=== PATIENT | female | born 1970 | race Caucasian/White ===

== ENCOUNTER 2016-05-03 15:48 | Emergency (ER) | payer MEDICARE, MEDICAID ==
[2016-05-03 17:30] VITALS: BP 110/70
--- NOTE | 2016-05-05 11:43 | ER ---
DATE SEEN: 05/03/2016 HISTORY OF PRESENT ILLNESS: Gogo presents with a multiplicity of complaints. Most of them reflected viral involvement. Left earache 2 days' duration, runny nose, right eye swelling, left submandibular node swelling, history of twisting her back when she turned one day, constant recurrent and intermittent supraumbilical discomfort unchanged (which is baseline), experienced "nausea when I want to eat..." and decreased appetite. "Food does not taste like it should." Her weight varies between 145 and 160 pounds and her right eye feels like it has a slight foreign body in it when she closes it. The patient has been taking Zofran as needed. PAST MEDICAL HISTORY: Significant for previous surgery, gastric bypass, hiatus hernia repair, appendectomy, panniculectomy, cholecystectomy, TAHBSO, mandibular dental-entire teeth extraction. MEDICAL PROBLEMS: History of COPD, GERD, chronic low back pain, lumbar surgery, bipolar, depression and anxiety, hypothyroidism, drug-seeking behavior, seasonal allergic rhinitis, sleep difficulty, chronic low back pain, and lumbar fusion surgery. ALLERGIES: Adhesive tape, ceftriaxone, sodium, Keflex, meperidine, penicillin, vancomycin. MEDICATIONS: See chart. Most of them asthma medicine, GERD medicine, and pain medicines, plus levothyroxine. PHYSICAL EXAMINATION: GENERAL: The patient has multiple complaints. She has very angular features, absent teeth, edentulous. HEENT: PERRLA intact. Pharynx is without abnormality. Mild scleral injection. No capillary injection. No right eye discharge. EOMs normal. Eyegrounds normal. Pharynx is negative except for without teeth. NECK: Supple. No bruits in the neck. No thyromegaly. LUNGS: Clear to auscultation. HEART: S1, S2. No murmur. ABDOMEN: Soft. No guarding. No abdominal discomfort. LOWER EXTREMITIES: Without edema. COURSE IN EMERGENCY DEPARTMENT: fluorescein stain placedafter Tetracaine instilled. No evidence for corneal abrasion or ulcer. Eversion of the upper tarsal plate and palpebral conjunctivae inferiorly. Does not reveal lesion, chalazion, or meibomian gland inflammation. ASSESSMENT: Irritation of eyes, probably secondary to viremia, associated other symptoms. The patient has chronic anxiety and other needs, see above dictated long problem list. PLAN: No medication given. The patient reassured and sent home. Use Tylenol or ibuprofen as needed for eye discomfort. Follow up with doctor in a week if not improved. /[id number] DENISE/FREYA LOEPZ
== END 2016-05-03 17:24 | disposition home or self-care (01) ==
LOC: FB.ED 15:48
DX: H57.8 Other specified disorders of eye and adnexa (principal); F41.9 Anxiety disorder, unspecified; J44.9 Chronic obstructive pulmonary disease, unspecified; K21.9 Gastro-esophageal reflux disease without esophagitis; F32.9 Major depressive disorder, single episode, unspecified; E03.9 Hypothyroidism, unspecified; Z98.84 Bariatric surgery status; Z90.49 Acquired absence of other specified parts of digestive tract; Z88.1 Allergy status to other antibiotic agents; Z88.0 Allergy status to penicillin; Z88.8 Allergy status to other drugs, medicaments and biological substances
CPT/HCPCS: 87081; 87430; 99282; 99284

== ENCOUNTER 2017-03-14 10:59 | Emergency (ER) | payer MEDICARE, MEDICAID ==
[2017-03-14] MEDS ORDERED: Meclizine 25 MG Tab PO ONE ×2 (11:00→11:27)
--- NOTE | 2017-03-14 12:42 | EDM.PDOC ---
ED HPI GENERAL MEDICAL PROBLEM - General Chief Complaint: General Stated Complaint: DIZZY FATIGUE Time Seen by Provider: 03/14/17 11:15 Source of Information: Reports: Patient, Family History Limitations: Reports: No Limitations - History of Present Illness INITIAL COMMENTS - FREE TEXT/NARRATIVE: Patient is a 46 year old woman with multiple medical problems on many medications including Klonopin, Morphine and Lyrica who for the last five days has been congested and she is feeling more tired and at times a little dizzy. No change in her pain and no fever or chills but she is worried. She has had 2 gastric bypasses and is chronically anemic and she did measure her blood sugar before coming to the ED and it was 45. She ate some cinnamon rolls and on admission to ED the blood glucose was 97. 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 Medication(s) (See medication list.) lower back Pain Score (Numeric/FACES): 8 - Related Data Allergies Allergy/AdvReac Type Severity Reaction Status Date / Time adhesive Allergy Rash Verified 03/14/17 11:07 ceftriaxone sodium Allergy Hives Verified 03/14/17 11:07 [From Rocephin] cephalexin Allergy Rash Verified 03/14/17 11:07 meperidine HCl [From Demerol] Allergy Hives Verified 03/14/17 11:07 Penicillins Allergy Rash Verified 03/14/17 11:07 vancomycin Allergy Wheezing Verified 03/14/17 11:07 Home Meds: Home Meds Albuterol [Proventil HFA] 2 puff INH ASDIRECTED PRN 03/13/14 [History] Levothyroxine 125 mcg PO DAILY 03/13/14 [History] Montelukast Sodium [Singulair] 10 mg PO DAILY 03/13/14 [History] QUEtiapine [SEROquel] 600 mg PO BEDTIME 03/13/14 [History] Zolpidem Tartrate 10 mg PO BEDTIME PRN 03/13/14 [History] Cholecalciferol (Vitamin D3) [Vitamin D3] 2,000 units PO DAILY 10/22/14 [History ] Omeprazole [Prilosec] 20 mg PO BID 03/26/15 [History] QUEtiapine [SEROquel] 200 mg PO DAILY 05/22/15 [History] Polyethylene Glycol 3350 [MiraLAX] 17 gm PO DAILY PRN 05/29/15 [History] Ondansetron [Zofran Odt] 8 mg PO Q6H PRN #10 tab.rapdis 12/22/15 [Rx] ClonazePAM [KlonoPIN] 2 mg PO DAILY 03/14/17 [History] Morphine 15 mg PO BEDTIME PRN 03/14/17 [History] Pregabalin [Lyrica] 50 mg PO BID 03/14/17 [History] Past Medical History - Past Health History Medical/Surgical History: Denies Medical/Surgical History HEENT History: Reports: Impaired Vision, Other (See Below) Other HEENT History: L eye surg Respiratory History: Reports: COPD Gastrointestinal History: Reports: Gastritis, GERD Other Gastrointestinal History: Pt states on her previous meeting with , he stated she might have GERD. 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 Endocrine/Metabolic History: Reports: Hypothyroidism, Vitamin D Deficiency Hematologic History: Reports: Blood Transfusion(s) Dermatologic History: Reports: Other (See Below) Other Dermatologic History: Has bouts of sores on her skin, has spoken to about it. - Infectious Disease History Infectious Disease History: Reports: Chicken Pox - Past Surgical History GI Surgical History: Reports: Appendectomy, Bariatric Procedure, Colonoscopy, EGD, Other (See Below) Female Surgical History: Reports: Section, Hysterectomy Neurological Surgical History: Reports: Other (See Below) Social & Family History - Family History Family Medical History: Noncontributory GI: Reports: Other (See Below) Other GI Family History: Gastric by passX2 - Tobacco Use Smoking Status *Q: Current Every Day Smoker Years of Tobacco use: 25 Packs/Tins Daily: 0.5 Used Tobacco, but Quit: Yes Month Tobacco Last Used: unknown Second Hand Smoke Exposure: Yes - Caffeine Use Caffeine Use: Reports: Energy Drinks, Soda Other Caffeine Use: sugar free - Alcohol Use Days Per Week of Alcohol Use: 0 - Recreational Drug Use Recreational Drug Use: No - Living Situation & Occupation Occupation: Disabled ED ROS GENERAL - Review of Systems Review Of Systems: See Below Constitutional: Reports: Malaise, Weakness, Fatigue HEENT: Reports: Sinus Problem (Congestion.) Respiratory: Reports: No Symptoms Cardiovascular: Reports: No Symptoms Endocrine: Reports: No Symptoms GI/Abdominal: Reports: No Symptoms : Reports: No Symptoms Musculoskeletal: Reports: No Symptoms Skin: Reports: No Symptoms Neurological: Reports: Dizziness Psychiatric: Reports: Anxiety Hematologic/Lymphatic: Reports: Anemia Immunologic: Reports: No Symptoms ED EXAM, GENERAL - Physical Exam Exam: See Below Exam Limited By: No Limitations General Appearance: Alert, WD/WN, No Apparent Distress Eye Exam: Bilateral Eye: Normal Fundi, Normal Inspection, Nystagmus, PERRL Ears: Normal External Exam, Normal Canal, Hearing Grossly Normal, Normal TMs Ear Exam: Bilateral Ear: Auricle Normal, Canal Normal, TM normal Nose: Normal Inspection, Normal Mucosa, No Blood Throat/Mouth: Normal Inspection, Normal Lips, Normal Teeth, Normal Gums, Normal Oropharynx, Normal Voice, No Airway Compromise Head: Atraumatic, Normocephalic Neck: Normal Inspection, Supple, Non-Tender, Full Range of Motion Respiratory/Chest: No Respiratory Distress, Lungs Clear, Normal Breath Sounds, No Accessory Muscle Use, Chest Non-Tender Cardiovascular: Normal Peripheral Pulses, Regular Rate, Rhythm, No Edema, No Gallop, No JVD, No Murmur, No Rub GI/Abdominal: Normal Bowel Sounds, Soft, Non-Tender, No Organomegaly, No Distention, No Abnormal Bruit, No Mass Back Exam: Normal Inspection, Full Range of Motion, NT Extremities: Normal Inspection, Normal Range of Motion, Non-Tender, Normal Capillary Refill, No Pedal Edema Neurological: Alert, Oriented, CN II-XII Intact, Normal Cognition, Normal Gait, Normal Reflexes, No Motor/Sensory Deficits Course - Vital Signs Text/Narrative:: Unremarkable ED course. She felt better and most of the dizzyness went away with 25 mg of Meclizine. Her labs were normal other than a hemoglobin of 9.6, which she said was stable for her. She will take Antivert 25 mg po tid prn dizzyness and follow up with Dr. Mccarty on 03-17-17. She will return to the ED if symptoms change or worsen before then. Last Recorded V/S: Last Vital Signs Temp 36.6 C 03/14/17 11:10 Pulse 69 03/14/17 11:10 Resp 18 03/14/17 11:10 BP 94/55 L 03/14/17 11:10 Pulse Ox 98 03/14/17 11:10 - Orders/Labs/Meds Orders: Active Orders 24 hr Category Date Time Status Accu Check [Blood Glucose Check, Bedside] [RC] ONETIME Care 03/14/17 11:44 Active Labs: Laboratory Tests 03/14/17 03/14/17 03/14/17 Range/Units 11:19 11:35 11:51 WBC 5.4 (4.5-12.0) X10-3/uL RBC 4.13 (3.23-5.20) x10(6)uL Hgb 9.6 L (11.5-15.5) g/dL Hct 30.7 (30.0-51.3) % MCV 74.3 L (80-96) fL MCH 23.2 L (27.7-33.6) pg MCHC 31.2 L (32.2-35.4) g/dL RDW 21.3 H (11.5-15.5) % Plt Count 292 (125-369) X10(3)uL MPV 8.7 (7.4-10.4) fL Neut % (Auto) 34.3 L (46-82) % Lymph % (Auto) 51.6 H (13-37) % [place] % (Auto) 9.4 (4-12) % Eos % (Auto) 3 (1.0-5.0) % Baso % (Auto) 1 (0-2) % Neut # (Auto) 1.9 (1.6-8.3) # Lymph # (Auto) 2.7 (0.6-5.0) # [place] # (Auto) 0.5 (0.0-1.3) # Eos # (Auto) 0.2 (0.0-0.8) # Baso # (Auto) 0.1 (0.0-0.2) # Sodium (135-145) mmol/L Potassium (3.5-5.3) mmol/L Chloride (100-110) mmol/L Carbon Dioxide (21-32) mmol/L BUN (7-18) mg/dL Creatinine (0.55-1.02) mg/dL Est Cr Clr Drug Dosing mL/min Estimated GFR (MDRD) (>60) BUN/Creatinine Ratio (9-20) Glucose (80-116) mg/dL POC Glucose 94 (80-116) mg/dL Calcium (8.6-10.2) mg/dL Total Bilirubin (0.1-1.3) mg/dL AST (5-25) IU/L ALT (12-36) U/L Alkaline Phosphatase (56-112) IU/L Total Protein (6.0-8.0) g/dL Albumin (3.5-5.2) g/dL Globulin g/dL Albumin/Globulin Ratio Urine Color Yellow (YELLOW) Urine Appearance Clear (CLEAR) Urine pH 6.0 (5.0-6.5) Ur Specific [place] 1.010 (1.010-1.025) Urine Protein Negative (NEGATIVE) mg/dL Urine Glucose (UA) Normal (NEGATIVE) mg/dL Urine Ketones Negative (NEGATIVE) mg/dL Urine Occult Blood Negative (NEGATIVE) Urine Nitrite Negative (NEGATIVE) Urine Bilirubin Negative (NEGATIVE) Urine Urobilinogen Normal (NEGATIVE) mg/dL Ur Leukocyte Esterase Negative (NEGATIVE) Urine RBC Not seen (0) Urine WBC 0-5 (0) Ur Squamous Epith Cells Few H (NS,R,O) Urine Bacteria Few H (NS) 03/14/17 Range/Units 11:51 WBC (4.5-12.0) X10-3/uL RBC (3.23-5.20) x10(6)uL Hgb (11.5-15.5) g/dL Hct (30.0-51.3) % MCV (80-96) fL MCH (27.7-33.6) pg MCHC (32.2-35.4) g/dL RDW (11.5-15.5) % Plt Count (125-369) X10(3)uL MPV (7.4-10.4) fL Neut % (Auto) (46-82) % Lymph % (Auto) (13-37) % [place] % (Auto) (4-12) % Eos % (Auto) (1.0-5.0) % Baso % (Auto) (0-2) % Neut # (Auto) (1.6-8.3) # Lymph # (Auto) (0.6-5.0) # [place] # (Auto) (0.0-1.3) # Eos # (Auto) (0.0-0.8) # Baso # (Auto) (0.0-0.2) # Sodium 143 (135-145) mmol/L Potassium 3.9 (3.5-5.3) mmol/L Chloride 109 (100-110) mmol/L Carbon Dioxide 26 (21-32) mmol/L BUN 12 (7-18) mg/dL Creatinine 0.6 (0.55-1.02) mg/dL Est Cr Clr Drug Dosing 110.84 mL/min Estimated GFR (MDRD) > 60 (>60) BUN/Creatinine Ratio 20.0 (9-20) Glucose 87 (80-116) mg/dL POC Glucose (80-116) mg/dL Calcium 8.2 L (8.6-10.2) mg/dL Total Bilirubin 0.2 (0.1-1.3) mg/dL AST 16 (5-25) IU/L ALT 21 (12-36) U/L Alkaline Phosphatase 98 (56-112) IU/L Total Protein 6.0 (6.0-8.0) g/dL Albumin 2.9 L (3.5-5.2) g/dL Globulin 3.1 g/dL Albumin/Globulin Ratio 0.9 Urine Color (YELLOW) Urine Appearance (CLEAR) Urine pH (5.0-6.5) Ur Specific [place] (1.010-1.025) Urine Protein (NEGATIVE) mg/dL Urine Glucose (UA) (NEGATIVE) mg/dL Urine Ketones (NEGATIVE) mg/dL Urine Occult Blood (NEGATIVE) Urine Nitrite (NEGATIVE) Urine Bilirubin (NEGATIVE) Urine Urobilinogen (NEGATIVE) mg/dL Ur Leukocyte Esterase (NEGATIVE) Urine RBC (0) Urine WBC (0) Ur Squamous Epith Cells (NS,R,O) Urine Bacteria (NS) Meds: Medications Discontinued Medications Generic Name Dose Route Start Last Admin Trade Name Clay PRN Reason Stop Dose Admin Meclizine HCl 25 mg 03/14/17 11:27 03/14/17 11:36 Antivert PO 03/14/17 11:28 25 mg ONETIME ONE Administration Departure - Departure Time of Disposition: 12:47 Disposition: Home, Self-Care 01 Condition: Good Clinical Impression: Labyrinthine dysfunction of both ears - Discharge Information Instructions: Dizziness Referrals: Garry Issa MD [Primary Care Provider] - Forms: ED Department Discharge Additional Instructions: Take Antivert every 8 hours as needed for dizziness. Follow up with Dr. Kerns as scheduled on Wednesday. Return if symptoms become worse. - My Orders Last 24 Hours: My Active Orders 03/14/17 11:44 Accu Check [Blood Glucose Check, Bedside] [RC] ONETIME - Assessment/Plan Last 24 Hours: My Active Orders 03/14/17 11:44 Accu Check [Blood Glucose Check, Bedside] [RC] ONETIME
[2017-03-14 12:44] VITALS: BP 98/56
== END 2017-03-14 12:35 | disposition home or self-care (01) ==
LOC: FB.ED 10:59
DX: H83.2X3 Labyrinthine dysfunction, bilateral (principal); K21.9 Gastro-esophageal reflux disease without esophagitis; J44.9 Chronic obstructive pulmonary disease, unspecified; F17.210 Nicotine dependence, cigarettes, uncomplicated; Z88.0 Allergy status to penicillin; Z88.8 Allergy status to other drugs, medicaments and biological substances; Z79.899 Other long term (current) drug therapy
CPT/HCPCS: 36415; 80053; 81001; 82962; 85025; 99283; A9270

== ENCOUNTER 2017-09-25 14:27 | Emergency (ER) | payer MEDICARE, MEDICAID ==
[2017-09-25] MEDS ORDERED: Sodium Chloride 0.9% 10 ML Syringe FLUSH PRN (15:25)
[2017-09-25] MEDS ORDERED: Pantoprazole 40 MG Vial IVPUSH ONE (15:26)
[2017-09-25] MEDS ORDERED: HYDROmorphone 2 MG/ML SDV IVPUSH ONE (15:27)
[2017-09-25] MEDS ORDERED: Promethazine 12.5 MG in Sodium Chloride 0.9% 50 ML IV ONE (15:28)
[2017-09-25] MEDS ORDERED: Sodium Chloride 0.9% 1,000 ML IV SCH (15:30)
--- NOTE | 2017-09-25 15:35 | EDM.PDOC ---
ED HPI GENERAL MEDICAL PROBLEM - General Chief Complaint: Abdominal Pain Stated Complaint: ABD PAIN Time Seen by Provider: 09/25/17 15:20 Source of Information: Reports: Patient History Limitations: Reports: No Limitations - History of Present Illness INITIAL COMMENTS - FREE TEXT/NARRATIVE: Presents with non-radiating LLQ abdominal pain x 2 days associated with N/V. Pain is intermittent but worsening. History of Gastric bypass 2008 (Dr. Edouard, [facility]) with revision 2014 (Dr. Duron, [facility]). Denies diarrhea or constipation, but has had hard stool. Onset Date: 09/24/17 Duration: Day(s): (2) Location: Reports: Abdomen Quality: Reports: Dull Severity: Moderate Associated Symptoms: Reports: Nausea/Vomiting - Related Data Allergies Allergy/AdvReac Type Severity Reaction Status Date / Time adhesive Allergy Rash Verified 09/25/17 16:10 ceftriaxone sodium Allergy Hives Verified 09/25/17 16:10 [From Rocephin] cephalexin Allergy Rash Verified 09/25/17 16:10 meperidine HCl [From Demerol] Allergy Hives Verified 09/25/17 16:10 Penicillins Allergy Rash Verified 09/25/17 16:10 vancomycin Allergy Wheezing Verified 09/25/17 16:10 Home Meds: Home Meds Albuterol [Proventil HFA] 2 puff INH ASDIRECTED PRN 03/13/14 [History] Levothyroxine 125 mcg PO DAILY 03/13/14 [History] Montelukast Sodium [Singulair] 10 mg PO DAILY 03/13/14 [History] QUEtiapine [SEROquel] 600 mg PO BEDTIME 03/13/14 [History] Zolpidem Tartrate 10 mg PO BEDTIME PRN 03/13/14 [History] Cholecalciferol (Vitamin D3) [Vitamin D3] 2,000 units PO DAILY 10/22/14 [History ] Omeprazole [Prilosec] 20 mg PO BID 03/26/15 [History] QUEtiapine [SEROquel] 200 mg PO DAILY 05/22/15 [History] Polyethylene Glycol 3350 [MiraLAX] 17 gm PO DAILY PRN 05/29/15 [History] Ondansetron [Zofran Odt] 8 mg PO Q6H PRN #10 tab.rapdis 12/22/15 [Rx] ClonazePAM [KlonoPIN] 2 mg PO DAILY 03/14/17 [History] Morphine 15 mg PO BEDTIME PRN 03/14/17 [History] Pregabalin [Lyrica] 50 mg PO BID 03/14/17 [History] traMADol [Ultram] 50 - 100 mg PO Q8H PRN #15 tablet 09/25/17 [Rx] Past Medical History HEENT History: Reports: Impaired Vision, Other (See Below) Other HEENT History: L eye surg Respiratory History: Reports: COPD Gastrointestinal History: Reports: Gastritis, GERD Other Gastrointestinal History: Pt states on her previous meeting with , he stated she might have GERD. Genitourinary History: Reports: Other (See Below). Denies: Renal Calculus Other Genitourinary History: diagnosed with UTI 03/25/15 Musculoskeletal History: Reports: Back Pain, Chronic, Fracture Neurological History: Reports: Migraines Psychiatric History: Reports: Addiction, Anxiety, Bipolar, Depression, Panic Attack Other Psychiatric History: hx alcohol abuse, is recovering alcoholic. Endocrine/Metabolic History: Reports: Hypothyroidism, Vitamin D Deficiency Hematologic History: Reports: Blood Transfusion(s) Dermatologic History: Reports: Other (See Below) Other Dermatologic History: Has bouts of sores on her skin, has spoken to about it. - Infectious Disease History Infectious Disease History: Reports: Chicken Pox - Past Surgical History GI Surgical History: Reports: Appendectomy, Bariatric Procedure (Gastric bypass 2008 (Dr. Edouard, [facility]) and revision 2014 (Dr. Duron, [facility])) , Colonoscopy, EGD, Other (See Below) Female Surgical History: Reports: Section, Hysterectomy Neurological Surgical History: Reports: Other (See Below) Social & Family History - Family History Family Medical History: Noncontributory GI: Reports: Other (See Below) Other GI Family History: Gastric by passX2 - Tobacco Use Smoking Status *Q: Current Every Day Smoker Tobacco Use Within Last Twelve Months: Cigarettes - Caffeine Use Caffeine Use: Reports: Energy Drinks, Soda Other Caffeine Use: sugar free - Alcohol Use Alcohol Use History: No - Recreational Drug Use Recreational Drug Use: No - Living Situation & Occupation Occupation: Disabled ED ROS GENERAL - Review of Systems Review Of Systems: ROS reveals no pertinent complaints other than HPI. ED EXAM, GI/ABD - Physical Exam Exam: See Below Exam Limited By: No Limitations General Appearance: Alert, WD/WN, No Apparent Distress Ears: Normal External Exam Nose: Normal Inspection Throat/Mouth: No Airway Compromise Head: Atraumatic, Normocephalic Neck: Supple, Full Range of Motion Respiratory/Chest: No Respiratory Distress, Lungs Clear, Normal Breath Sounds Cardiovascular: Regular Rate, Rhythm, No Murmur, No Rub GI/Abdominal Exam: Normal Bowel Sounds, No Distention, Tender (moderate LLQ) Back Exam: Full Range of Motion Extremities: Normal Range of Motion Neurological: Alert, Oriented, Normal Cognition Psychiatric: Normal Affect, Normal Mood Skin Exam: Warm, Dry, Intact, Normal Color, No Rash Course - Orders/Labs/Meds Orders: Active Orders 24 hr Category Date Time Status Abdomen Pelvis w Cont [CT] Stat Exams 09/25/17 15:55 Taken HCG QUALITATIVE,URINE [URCHEM] Stat Lab 09/25/17 15:22 Ordered UA W/MICROSCOPIC [URIN] Stat Lab 09/25/17 15:22 Ordered Diatrizoate Jackelyn/Diatrizoate Na [Gastrografin 37%] Med 09/25/17 16:30 Active 30 ml PO . DIRECTED Sodium Chloride 0.9% [Normal Saline] 1,000 ml Med 09/25/17 15:30 Active IV ASDIRECTED Sodium Chloride 0.9% [Saline Flush] Med 09/25/17 15:25 Active 10 ml FLUSH ASDIRECTED PRN Saline Lock Insert [OM.PC] Stat Oth 09/25/17 15:25 Ordered Medication Orders Diatrizoate Meglum/Diatrizoate Sod (Gastrografin 37%) 30 ml PO . DIRECTED LENA Last Admin: 09/25/17 16:40 Dose: 30 ml Sodium Chloride (Normal Saline) 1,000 mls @ 150 mls/hr IV ASDIRECTED LENA Last Admin: 09/25/17 16:57 Dose: 150 mls/hr Sodium Chloride (Saline Flush) 10 ml FLUSH ASDIRECTED PRN PRN Reason: Keep Vein Open Labs: Laboratory Tests 09/25/17 09/25/17 09/25/17 Range/Units 15:22 15:22 15:32 WBC 5.4 (4.5-12.0) X10-3/uL RBC 3.90 (3.23-5.20) x10(6)uL Hgb 10.0 L (11.5-15.5) g/dL Hct 31.7 (30.0-51.3) % MCV 81.3 (80-96) fL MCH 25.7 L (27.7-33.6) pg MCHC 31.7 L (32.2-35.4) g/dL RDW 28.6 H (11.5-15.5) % Plt Count 533 H (125-369) X10(3)uL MPV 7.6 (7.4-10.4) fL Neut % (Auto) 55.9 (46-82) % Lymph % (Auto) 30.6 (13-37) % [place] % (Auto) 11.8 (4-12) % Eos % (Auto) 1 (1.0-5.0) % Baso % (Auto) 1 (0-2) % Neut # (Auto) 3.2 (1.6-8.3) # Lymph # (Auto) 1.6 (0.6-5.0) # [place] # (Auto) 0.6 (0.0-1.3) # Eos # (Auto) 0.0 (0.0-0.8) # Baso # (Auto) 0.0 (0.0-0.2) # Sodium (135-145) mmol/L Potassium (3.5-5.3) mmol/L Chloride (100-110) mmol/L Carbon Dioxide (21-32) mmol/L BUN (7-18) mg/dL Creatinine (0.55-1.02) mg/dL Est Cr Clr Drug Dosing Estimated GFR (MDRD) (>60) BUN/Creatinine Ratio (9-20) Glucose (80-116) mg/dL Calcium (8.6-10.2) mg/dL Total Bilirubin (0.1-1.3) mg/dL AST (5-25) IU/L ALT (12-36) U/L Alkaline Phosphatase (56-112) IU/L Total Protein (6.0-8.0) g/dL Albumin (3.5-5.2) g/dL Globulin g/dL Albumin/Globulin Ratio Amylase (25-115) U/L Urine Color Yellow (YELLOW) Urine Appearance Clear (CLEAR) Urine pH 6.0 (5.0-6.5) Ur Specific [place] 1.010 (1.010-1.025) Urine Protein Negative (NEGATIVE) mg/dL Urine Glucose (UA) Normal (NEGATIVE) mg/dL Urine Ketones Negative (NEGATIVE) mg/dL Urine Occult Blood Negative (NEGATIVE) Urine Nitrite Negative (NEGATIVE) Urine Bilirubin Negative (NEGATIVE) Urine Urobilinogen Normal (NEGATIVE) mg/dL Ur Leukocyte Esterase Negative (NEGATIVE) Urine RBC Not seen (0) Urine WBC 0-5 (0) Ur Squamous Epith Cells Few H (NS,R,O) Urine Bacteria Few H (NS) Urine HCG, Qual Negative (NEGATIVE) 09/25/17 Range/Units 15:32 WBC (4.5-12.0) X10-3/uL RBC (3.23-5.20) x10(6)uL Hgb (11.5-15.5) g/dL Hct (30.0-51.3) % MCV (80-96) fL MCH (27.7-33.6) pg MCHC (32.2-35.4) g/dL RDW (11.5-15.5) % Plt Count (125-369) X10(3)uL MPV (7.4-10.4) fL Neut % (Auto) (46-82) % Lymph % (Auto) (13-37) % [place] % (Auto) (4-12) % Eos % (Auto) (1.0-5.0) % Baso % (Auto) (0-2) % Neut # (Auto) (1.6-8.3) # Lymph # (Auto) (0.6-5.0) # [place] # (Auto) (0.0-1.3) # Eos # (Auto) (0.0-0.8) # Baso # (Auto) (0.0-0.2) # Sodium 134 L (135-145) mmol/L Potassium 4.1 (3.5-5.3) mmol/L Chloride 97 L D (100-110) mmol/L Carbon Dioxide 27 (21-32) mmol/L BUN 11 (7-18) mg/dL Creatinine 0.7 (0.55-1.02) mg/dL Est Cr Clr Drug Dosing TNP Estimated GFR (MDRD) > 60 (>60) BUN/Creatinine Ratio 15.7 (9-20) Glucose 72 L (80-116) mg/dL Calcium 8.9 (8.6-10.2) mg/dL Total Bilirubin 0.5 (0.1-1.3) mg/dL AST 21 D (5-25) IU/L ALT 21 (12-36) U/L Alkaline Phosphatase 125 H (56-112) IU/L Total Protein 8.2 H (6.0-8.0) g/dL Albumin 4.0 (3.5-5.2) g/dL Globulin 4.2 g/dL Albumin/Globulin Ratio 1.0 Amylase 66 (25-115) U/L Urine Color (YELLOW) Urine Appearance (CLEAR) Urine pH (5.0-6.5) Ur Specific [place] (1.010-1.025) Urine Protein (NEGATIVE) mg/dL Urine Glucose (UA) (NEGATIVE) mg/dL Urine Ketones (NEGATIVE) mg/dL Urine Occult Blood (NEGATIVE) Urine Nitrite (NEGATIVE) Urine Bilirubin (NEGATIVE) Urine Urobilinogen (NEGATIVE) mg/dL Ur Leukocyte Esterase (NEGATIVE) Urine RBC (0) Urine WBC (0) Ur Squamous Epith Cells (NS,R,O) Urine Bacteria (NS) Urine HCG, Qual (NEGATIVE) Meds: Medications Generic Name Dose Route Start Last Admin Trade Name Freq PRN Reason Stop Dose Admin Diatrizoate Meglum/Diatrizoate Sod 30 ml 09/25/17 16:30 09/25/17 16:40 Gastrografin 37% PO 30 ml . DIRECTED LENA Administration Sodium Chloride 1,000 mls @ 150 mls/hr 09/25/17 15:30 09/25/17 16:57 Normal Saline IV 150 mls/hr ASDIRECTED LENA Administration Sodium Chloride 10 ml 09/25/17 15:25 Saline Flush FLUSH ASDIRECTED PRN Keep Vein Open Discontinued Medications Generic Name Dose Route Start Last Admin Trade Name Freq PRN Reason Stop Dose Admin Hydromorphone HCl 1 mg 09/25/17 15:27 09/25/17 16:52 Dilaudid IVPUSH 09/25/17 15:28 1 mg ONETIME ONE Administration Promethazine HCl 12.5 mg/ 50.5 mls @ 200 mls/hr 09/25/17 15:28 09/25/17 17:00 Sodium Chloride IV 09/25/17 15:43 200 mls/hr ONETIME ONE Administration Iopamidol 100 ml 09/25/17 16:22 09/25/17 16:40 Isovue-370 (76%) IV 09/25/17 16:23 100 ml . DIRECTED ONE Administration Pantoprazole Sodium 40 mg 09/25/17 15:26 09/25/17 16:58 Protonix Iv IVPUSH 09/25/17 15:27 40 mg ONETIME ONE Administration - Radiology Interpretation Free Text/Narrative:: CT Abd/Pelvis w/IV contrast: NAD - Re-Assessments/Exams Free Text/Narrative Re-Assessment/Exam: 09/25/17 17:59 Pain has improved. Departure - Departure Time of Disposition: 17:59 Disposition: Home, Self-Care 01 Condition: Good Clinical Impression: Abdominal pain Qualifiers: Abdominal location: lower abdomen, unspecified Qualified Code(s): R10.30 - Lower abdominal pain, unspecified - Discharge Information *PRESCRIPTION DRUG MONITORING PROGRAM REVIEWED*: Yes *COPY OF PRESCRIPTION DRUG MONITORING REPORT IN PATIENT AFSANEH: No Prescriptions: traMADol [Ultram] 50 - 100 mg PO Q8H PRN #15 tablet PRN Reason: Pain Instructions: Abdominal Pain, Adult, [id number] Referrals: Garry Issa MD [Primary Care Provider] - Forms: ED Department Discharge Additional Instructions: Fill prescription for Tramadol and take as directed. Follow up with your doctor in 2 days. Return to the ER if symptoms worsen. - My Orders Last 24 Hours: My Active Orders 09/25/17 15:22 HCG QUALITATIVE,URINE [URCHEM] Stat UA W/MICROSCOPIC [URIN] Stat 09/25/17 15:25 Sodium Chloride 0.9% [Saline Flush] 10 ml FLUSH ASDIRECTED PRN Saline Lock Insert [OM.PC] Stat 09/25/17 15:30 Sodium Chloride 0.9% [Normal Saline] 1,000 ml IV ASDIRECTED 09/25/17 15:55 Abdomen Pelvis w Cont [CT] Stat 09/25/17 16:30 Diatrizoate Jackelyn/Diatrizoate Na [Gastrografin 37%] 30 ml PO . DIRECTED - Assessment/Plan Last 24 Hours: My Active Orders 09/25/17 15:22 HCG QUALITATIVE,URINE [URCHEM] Stat UA W/MICROSCOPIC [URIN] Stat 09/25/17 15:25 Sodium Chloride 0.9% [Saline Flush] 10 ml FLUSH ASDIRECTED PRN Saline Lock Insert [OM.PC] Stat 09/25/17 15:30 Sodium Chloride 0.9% [Normal Saline] 1,000 ml IV ASDIRECTED 09/25/17 15:55 Abdomen Pelvis w Cont [CT] Stat 09/25/17 16:30 Diatrizoate Jackelyn/Diatrizoate Na [Gastrografin 37%] 30 ml PO . DIRECTED
[2017-09-25] MEDS ORDERED: Iopamidol 755 Mg/ML 100 ML Bottle IV ONE (16:22)
[2017-09-25] MEDS ORDERED: Diatrizoate Meglumine/Diatrizoate Sodium 37% 30 ML Bottle PO SCH (16:30)
[2017-09-25 21:43] VITALS: BP 129/87
== END 2017-09-25 18:15 | disposition home or self-care (01) ==
LOC: FB.ED 14:27
DX: R10.32 Left lower quadrant pain (principal); J44.9 Chronic obstructive pulmonary disease, unspecified; F17.210 Nicotine dependence, cigarettes, uncomplicated; Z88.8 Allergy status to other drugs, medicaments and biological substances; Z88.0 Allergy status to penicillin; Z88.1 Allergy status to other antibiotic agents; Z79.899 Other long term (current) drug therapy
CPT/HCPCS: 36415; 74177; 80053; 81001; 81025; 82150; 85025; 96361; 96365; 96375; 99284; C9113; J1170; J2550; J7030; J7050; Q9963; Q9967

== ENCOUNTER 2019-09-26 12:02 | Emergency (ER) | payer MEDICARE, MEDICAID ==
[2019-09-26] MEDS ORDERED: Acetaminophen/HYDROcodone 325-5 MG Tab PO ONE (12:03)
[2019-09-26] MEDS ORDERED: Sodium Chloride 0.9% 10 ML Syringe FLUSH PRN (12:12)
[2019-09-26] MEDS ORDERED: Ondansetron 4 MG/2 ML SDV IVPUSH ONE (12:14)
[2019-09-26] MEDS ORDERED: Sodium Chloride 0.9% 1,000 ML IV SCH (12:15)
[2019-09-26] MEDS ORDERED: traMADol 50 MG Tab PO ONE (12:20)
[2019-09-26] MEDS ORDERED: Potassium Chloride 10% 20 MEQ/15 ML Soln 15 ML UD Cup PO ONE (13:28)
[2019-09-26] MEDS ORDERED: Ketorolac 30 MG/ML SDV IVPUSH ONE (14:16)
[2019-09-26 14:28] VITALS: BP 114/74; PULSE 70
--- NOTE | 2019-09-26 16:13 | CR ---
INDICATION: Left foot injury. LEFT FOOT: Three views of the left foot were obtained with four images 09/26/19 - no comparison. Moderately large plantar calcaneal spur is noted with a small posterior calcaneal spur. There is suggestion of some irregularity at the metatarsal tarsal joints 1, 2, 3, and possibly 4, raising question of chip fracture fragments in those areas. This should be correlated clinically. Additional examination could be obtained, such as CT of the left foot to further evaluate this area. At any rate, there do appear to be some degenerative changes at those joints. Some minimal degenerative change is noted at the ankle mortise also. No other sign of possible fractures or other gross abnormality was seen in the left foot. Report was given by phone to Dr. Shoemaker at approximately 1407 hours. [facility]
--- NOTE | 2019-09-26 16:14 | EDM.PDOC ---
ED HPI GENERAL MEDICAL PROBLEM - General Chief Complaint: Lower Extremity Injury/Pain Stated Complaint: LT FOOT FX Time Seen by Provider: 09/26/19 12:05 Source of Information: Reports: Patient History Limitations: Reports: No Limitations - History of Present Illness INITIAL COMMENTS - FREE TEXT/NARRATIVE: Patient presented to the ED because of Left foot pain. She was in her kitchen, slipped and twisted her left foot. She c/o 10/10pain which is worse with ambulation and movements. Left Foot Pain Score (Numeric/FACES): 10 - Related Data Allergies Allergy/AdvReac Type Severity Reaction Status Date / Time adhesive Allergy Rash Verified 09/25/17 16:10 ceftriaxone sodium Allergy Hives Verified 09/25/17 16:10 [From Rocephin] cephalexin Allergy Rash Verified 09/25/17 16:10 meperidine HCl [From Demerol] Allergy Hives Verified 09/25/17 16:10 Penicillins Allergy Rash Verified 09/25/17 16:10 vancomycin Allergy Wheezing Verified 09/25/17 16:10 Home Meds: Home Meds Albuterol [Proventil HFA] 2 puff INH ASDIRECTED PRN 03/13/14 [History] Levothyroxine 125 mcg PO DAILY 03/13/14 [History] Montelukast Sodium [Singulair] 10 mg PO DAILY 03/13/14 [History] QUEtiapine [SEROquel] 600 mg PO BEDTIME 03/13/14 [History] Zolpidem Tartrate 10 mg PO BEDTIME PRN 03/13/14 [History] Cholecalciferol (Vitamin D3) [Vitamin D3] 2,000 units PO DAILY 10/22/14 [History] Omeprazole [Prilosec] 20 mg PO BID 03/26/15 [History] QUEtiapine [SEROquel] 200 mg PO DAILY 05/22/15 [History] Polyethylene Glycol 3350 [MiraLAX] 17 gm PO DAILY PRN 05/29/15 [History] Ondansetron [Zofran Odt] 8 mg PO Q6H PRN #10 tab.rapdis 12/22/15 [Rx] ClonazePAM [KlonoPIN] 2 mg PO DAILY 03/14/17 [History] Morphine 15 mg PO BEDTIME PRN 03/14/17 [History] Pregabalin [Lyrica] 50 mg PO BID 03/14/17 [History] DULoxetine [Cymbalta] 60 mg PO DAILY 09/25/17 [History] traMADol [Ultram] 50 - 100 mg PO Q8H PRN #15 tablet 09/25/17 [Rx] Acetaminophen/HYDROcodone [[place] 325-5 MG] 1 tab PO Q4H PRN #10 tab 09/26/19 [Rx] Potassium Chloride [Klor-Con] 40 meq PO TID #18 packet 09/27/19 [Rx] Past Medical History HEENT History: Reports: Impaired Vision, Other (See Below) Other HEENT History: L eye surg Respiratory History: Reports: COPD Gastrointestinal History: Reports: Gastritis, GERD Other Gastrointestinal History: Pt states on her previous meeting with , he stated she might have GERD. Genitourinary History: Reports: Other (See Below). Denies: Renal Calculus Other Genitourinary History: diagnosed with UTI 03/25/15 [employer] History: Reports: Musculoskeletal History: Reports: Back Pain, Chronic, Fracture Neurological History: Reports: Migraines Psychiatric History: Reports: Addiction, Anxiety, Bipolar, Depression, Panic Attack Other Psychiatric History: hx alcohol abuse, is recovering alcoholic. Endocrine/Metabolic History: Reports: Hypothyroidism, Vitamin D Deficiency Hematologic History: Reports: Blood Transfusion(s) Dermatologic History: Reports: Other (See Below) Other Dermatologic History: Has bouts of sores on her skin, has spoken to about it. - Infectious Disease History Infectious Disease History: Reports: Chicken Pox - Past Surgical History GI Surgical History: Reports: Appendectomy, Bariatric Procedure (Gastric bypass 2008 (Dr. Edouard, [facility]) and revision 2014 (Dr. Duron, [facility])), Colonoscopy, EGD, Other (See Below) Female Surgical History: Reports: Section, Hysterectomy Neurological Surgical History: Reports: Other (See Below) Social & Family History - Family History Family Medical History: Noncontributory GI: Reports: Other (See Below) Other GI Family History: Gastric by passX2 - Caffeine Use Caffeine Use: Reports: Energy Drinks, Soda Other Caffeine Use: sugar free - Living Situation & Occupation Occupation: Disabled Review of Systems - Review of Systems Review Of Systems: See Below Constitutional: Reports: No Symptoms Ears: Reports: No Symptoms Nose: Reports: No Symptoms Mouth/Throat: Reports: No Symptoms Respiratory: Reports: No Symptoms Cardiovascular: Reports: No Symptoms GI/Abdominal: Reports: No Symptoms Genitourinary: Reports: No Symptoms Musculoskeletal: Reports: Joint Pain, Joint Swelling Skin: Reports: No Symptoms ED EXAM, GENERAL - Physical Exam Exam: See Below Exam Limited By: Intoxication General Appearance: Alert, No Apparent Distress Ears: Normal External Exam, Normal Canal Nose: Normal Inspection, Normal Mucosa Throat/Mouth: Normal Inspection, Normal Lips Head: Atraumatic, Normocephalic Neck: Normal Inspection, Supple, Non-Tender, Full Range of Motion Respiratory/Chest: No Respiratory Distress, Lungs Clear, Normal Breath Sounds Cardiovascular: Normal Peripheral Pulses, Regular Rate, Rhythm, No Edema, No Gallop GI/Abdominal: Normal Bowel Sounds, Soft, Non-Tender, No Organomegaly Back Exam: Normal Inspection, Full Range of Motion Extremities: Normal Inspection, Other (tenderness and swelling-dorsum of left foot) Course - Vital Signs Text/Narrative:: Labs/Xray left foot/CT left foot was discussed with patient and verbalized full understanding Hypokalemia-KCL liquid 40 meq po x1 Consult done with Dr Otero [facility] at [place] and will see patient in AM Last Recorded V/S: Last Vital Signs Temp 37.1 C 09/26/19 12:02 Pulse 70 09/26/19 14:28 Resp 16 09/26/19 14:28 BP 114/74 09/26/19 14:28 Pulse Ox 95 09/26/19 14:28 - Orders/Labs/Meds Orders: Active Orders 24 hr Category Date Time Status EKG Documentation Completion [RC] ASDIRECTED Care 09/26/19 12:13 Active Saline Lock Insert [OM.PC] Routine Oth 09/26/19 12:12 Ordered EKG 12 Lead [EK] Routine Ther 09/26/19 12:13 Ordered Labs: Laboratory Tests 09/26/19 09/26/19 09/26/19 Range/Units 12:25 12:25 12:25 WBC 4.7 (4.5-12.0) X10-3/uL RBC 3.05 L (3.23-5.20) x10(6)uL Hgb 8.1 L (11.5-15.5) g/dL Hct 26.0 L (30.0-51.3) % MCV 85.1 (80-96) fL MCH 26.5 L (27.7-33.6) pg MCHC 31.1 L (32.2-35.4) g/dL RDW 27.4 H (11.5-15.5) % Plt Count 345 (125-369) X10(3)uL MPV 8.1 (7.4-10.4) fL Neut % (Auto) 47.5 (46-82) % Lymph % (Auto) 38.2 H (13-37) % [place] % (Auto) 12.6 H (4-12) % Eos % (Auto) 1 (1.0-5.0) % Baso % (Auto) 1 (0-2) % Neut # (Auto) 2.3 (1.6-8.3) # Lymph # (Auto) 1.8 (0.6-5.0) # [place] # (Auto) 0.6 (0.0-1.3) # Eos # (Auto) 0.0 (0.0-0.8) # Baso # (Auto) 0.0 (0.0-0.2) # Sodium 136 (135-145) mmol/L Potassium 2.1 L* D (3.5-5.3) mmol/L Chloride 93 L (100-110) mmol/L Carbon Dioxide 35 H (21-32) mmol/L BUN 20 H (7-18) mg/dL Creatinine 1.3 H (0.55-1.02) mg/dL Est Cr Clr Drug Dosing TNP Estimated GFR (MDRD) 44 L (>60) BUN/Creatinine Ratio 15.4 (9-20) Glucose 105 (80-116) mg/dL Calcium 8.9 (8.6-10.2) mg/dL Total Bilirubin 0.6 (0.1-1.3) mg/dL AST 21 (5-25) IU/L ALT 22 (12-36) U/L Alkaline Phosphatase 97 (56-112) IU/L Troponin I 7.1 (4.0-60.3) pg/mL Total Protein 7.1 (6.0-8.0) g/dL Albumin 3.3 L (3.5-5.2) g/dL Globulin 3.8 g/dL Albumin/Globulin Ratio 0.9 Urine Color (YELLOW) Urine Appearance (CLEAR) Urine pH (5.0-6.5) Ur Specific [place] (1.010-1.025) Urine Protein (NEGATIVE) mg/dL Urine Glucose (UA) (NORMAL) mg/dL Urine Ketones (NEGATIVE) mg/dL Urine Occult Blood (NEGATIVE) Urine Nitrite (NEGATIVE) Urine Bilirubin (NEGATIVE) Urine Urobilinogen (NEGATIVE) mg/dL Ur Leukocyte Esterase (NEGATIVE) Urine WBC (0-5) 09/26/19 Range/Units 13:00 WBC (4.5-12.0) X10-3/uL RBC (3.23-5.20) x10(6)uL Hgb (11.5-15.5) g/dL Hct (30.0-51.3) % MCV (80-96) fL MCH (27.7-33.6) pg MCHC (32.2-35.4) g/dL RDW (11.5-15.5) % Plt Count (125-369) X10(3)uL MPV (7.4-10.4) fL Neut % (Auto) (46-82) % Lymph % (Auto) (13-37) % [place] % (Auto) (4-12) % Eos % (Auto) (1.0-5.0) % Baso % (Auto) (0-2) % Neut # (Auto) (1.6-8.3) # Lymph # (Auto) (0.6-5.0) # [place] # (Auto) (0.0-1.3) # Eos # (Auto) (0.0-0.8) # Baso # (Auto) (0.0-0.2) # Sodium (135-145) mmol/L Potassium (3.5-5.3) mmol/L Chloride (100-110) mmol/L Carbon Dioxide (21-32) mmol/L BUN (7-18) mg/dL Creatinine (0.55-1.02) mg/dL Est Cr Clr Drug Dosing Estimated GFR (MDRD) (>60) BUN/Creatinine Ratio (9-20) Glucose (80-116) mg/dL Calcium (8.6-10.2) mg/dL Total Bilirubin (0.1-1.3) mg/dL AST (5-25) IU/L ALT (12-36) U/L Alkaline Phosphatase (56-112) IU/L Troponin I (4.0-60.3) pg/mL Total Protein (6.0-8.0) g/dL Albumin (3.5-5.2) g/dL Globulin g/dL Albumin/Globulin Ratio Urine Color Yellow (YELLOW) Urine Appearance Turbid (CLEAR) Urine pH 6.0 (5.0-6.5) Ur Specific [place] 1.010 (1.010-1.025) Urine Protein Negative (NEGATIVE) mg/dL Urine Glucose (UA) Normal (NORMAL) mg/dL Urine Ketones 15 H (NEGATIVE) mg/dL Urine Occult Blood Negative (NEGATIVE) Urine Nitrite Positive H (NEGATIVE) Urine Bilirubin Small H (NEGATIVE) Urine Urobilinogen 1 H (NEGATIVE) mg/dL Ur Leukocyte Esterase Large H (NEGATIVE) Urine WBC Packed H (0-5) Meds: Medications Discontinued Medications Generic Name Dose Route Start Last Admin Trade Name Freq PRN Reason Stop Dose Admin Sodium Chloride 1,000 mls @ 999 mls/hr 09/26/19 12:15 09/26/19 13:15 Normal Saline IV 999 mls/hr ASDIRECTED LENA Administration Ketorolac Tromethamine 30 mg 09/26/19 14:16 09/26/19 14:18 Toradol IVPUSH 09/26/19 14:17 30 mg ONETIME ONE Administration Ondansetron HCl 4 mg 09/26/19 12:14 09/26/19 13:45 Zofran IVPUSH 09/26/19 12:15 4 mg ONETIME ONE Administration Potassium Chloride 40 meq 09/26/19 13:28 09/26/19 14:00 Potassium Chloride Solution PO 09/26/19 13:29 40 meq ONETIME ONE Administration Sodium Chloride 10 ml 09/26/19 12:12 09/26/19 13:20 Saline Flush FLUSH 10 ml ASDIRECTED PRN Administration Keep Vein Open Tramadol HCl 100 mg 09/26/19 12:20 09/26/19 12:46 Ultram PO 09/26/19 12:21 100 mg ONETIME ONE Administration Departure - Departure Time of Disposition: 16:10 Disposition: Home, Self-Care 01 Condition: Good Clinical Impression: Foot fracture, left, Hypokalemia - Discharge Information Prescriptions: Potassium Chloride [Klor-Con] 40 meq PO TID #18 packet Acetaminophen/HYDROcodone [[place] 325-5 MG] 1 tab PO Q4H PRN #10 tab PRN Reason: Pain Referrals: Huseyin Noland MD [Primary Care Provider] - Forms: ED Department Discharge Additional Instructions: Please read discharge instructions on foot fracture Use your crutches at all times Klor con 20 MEQ , take 2 tablets 3 times daily for 3 days Take [place] 5/325, 1-2 tablets every 4-6 hours as needed for pain Follow up with [facility] [employer] [employer] tomorrow - My Orders Last 24 Hours: My Active Orders 09/26/19 12:12 Saline Lock Insert [OM.PC] Routine 09/26/19 12:13 EKG Documentation Completion [RC] ASDIRECTED EKG 12 Lead [EK] Routine - Assessment/Plan Last 24 Hours: My Active Orders 09/26/19 12:12 Saline Lock Insert [OM.PC] Routine 09/26/19 12:13 EKG Documentation Completion [RC] ASDIRECTED EKG 12 Lead [EK] Routine
--- NOTE | 2019-09-26 16:39 | CT ---
INDICATION: Trauma, abnormal x-ray suggesting fractures at the distal forefoot on the left. CT LOWER EXTREMITY - LEFT, WITHOUT CONTRAST: Spiral 2.5 mm axial sections were obtained through the feet without contrast with sagittal and coronal reconstructions and revealed chip fracture fragments off the proximal metaphyses of the first, second and third metatarsals. The fourth and fifth metatarsals appear to be intact. Fractures are noted at the cuboid bone and at all 3 cuneiforms. There are some distraction fracture fragments and deformity at the fracture sites. The appearance raises the question of neuropathic pathology which should be correlated clinically. Tiny chip fracture fragment is suggested off the lateral aspect of the distal metaphysis of the left tibia at the tibiotalar interface anteriorly. This could represent an old chip fracture fragment that did not unite, however - correlate clinically - is there tenderness at the left lateral malleolus along the anterior aspect. No other fracture sites were identified. IMPRESSION: 1. Chip fracture fragments and some areas of relatively more prominent fracture with comminution at cuneiforms and to a lesser extent the third cuneiform and cuboid with fractures of proximal metaphyses of the first, second and third metatarsals also noted on the left. 2. Moderately large plantar calcaneal spur is noted with small posterior calcaneal spur on the left, a small posterior spur and tiny plantar calcaneal spur is noted on the right. 3. Tiny chip fracture fragment is suggested off the lateral aspect of the distal metaphysis of the left tibia at the tibiotalar interface anteriorly. This could represent an old chip fracture fragment that did not unite, however - correlate clinically - is there tenderness at the left lateral malleolus along the anterior aspect. Report was called to Dr. Shoemaker at 1555 hours. [facility]
== END 2019-09-26 16:30 | disposition home or self-care (01) ==
LOC: FB.ED 12:02
DX: S92.212A Displaced fracture of cuboid bone of left foot, initial encounter for closed fracture (principal); S92.312A Displaced fracture of first metatarsal bone, left foot, initial encounter for closed fracture; S92.322A Displaced fracture of second metatarsal bone, left foot, initial encounter for closed fracture; S92.332A Displaced fracture of third metatarsal bone, left foot, initial encounter for closed fracture; S92.232A Displaced fracture of intermediate cuneiform of left foot, initial encounter for closed fracture; S92.222A Displaced fracture of lateral cuneiform of left foot, initial encounter for closed fracture; S92.242A Displaced fracture of medial cuneiform of left foot, initial encounter for closed fracture; E87.6 Hypokalemia; J44.9 Chronic obstructive pulmonary disease, unspecified; K21.9 Gastro-esophageal reflux disease without esophagitis; F41.9 Anxiety disorder, unspecified; F31.9 Bipolar disorder, unspecified; E03.9 Hypothyroidism, unspecified; Z88.1 Allergy status to other antibiotic agents; Z88.8 Allergy status to other drugs, medicaments and biological substances; Z88.0 Allergy status to penicillin; Z91.048 Other nonmedicinal substance allergy status; Z79.899 Other long term (current) drug therapy; X50.1XXA Overexertion from prolonged static or awkward postures, initial encounter; Y92.000 Kitchen of unspecified non-institutional (private) residence as the place of occurrence of the external cause
CPT/HCPCS: 36415; 73630; 73700; 80053; 81001; 84484; 85025; 93005; 96361; 96374; 96375; 99284; A9270; J1885; J2405; J7030

== ENCOUNTER 2019-10-23 16:45 | Emergency (ER) | payer MEDICARE, MEDICAID ==
[2019-10-23] MEDS ORDERED: Potassium Chloride 40 MEQ/20 ML SDV IV SCH (17:00)
[2019-10-23] MEDS ORDERED: Potassium Chloride 100 ML IV SCH (17:00)
--- NOTE | 2019-10-23 17:03 | EDM.PDOC ---
ED HPI GENERAL MEDICAL PROBLEM - General Stated Complaint: LOW POTASSIUM Time Seen by Provider: 10/23/19 16:55 Source of Information: Reports: Patient History Limitations: Reports: No Limitations - History of Present Illness INITIAL COMMENTS - FREE TEXT/NARRATIVE: c/o low K pt at clinic, K 2.3, Dr Issa sent pt to ED for KCl pt with L foot fx one month ago, had low K then, had not taken replacement K has h/o gastric bypass, h/o alc abuse in past no prior CV hx will check Mg as well not on diuretic says she has been a little lightheaded when standing, no sob, no n/v, no cp, no manning, no f/c/d, no other sxs - Related Data Allergies Allergy/AdvReac Type Severity Reaction Status Date / Time adhesive Allergy Rash Verified 09/25/17 16:10 ceftriaxone sodium Allergy Hives Verified 09/25/17 16:10 [From Rocephin] cephalexin Allergy Rash Verified 09/25/17 16:10 meperidine HCl [From Demerol] Allergy Hives Verified 09/25/17 16:10 Penicillins Allergy Rash Verified 09/25/17 16:10 vancomycin Allergy Wheezing Verified 09/25/17 16:10 Home Meds: Home Meds Albuterol [Proventil HFA] 2 puff INH ASDIRECTED PRN 03/13/14 [History] Levothyroxine 125 mcg PO DAILY 03/13/14 [History] Montelukast Sodium [Singulair] 10 mg PO DAILY 03/13/14 [History] QUEtiapine [SEROquel] 600 mg PO BEDTIME 03/13/14 [History] Zolpidem Tartrate 10 mg PO BEDTIME PRN 03/13/14 [History] Cholecalciferol (Vitamin D3) [Vitamin D3] 2,000 units PO DAILY 10/22/14 [History] Omeprazole [Prilosec] 20 mg PO BID 03/26/15 [History] QUEtiapine [SEROquel] 200 mg PO DAILY 05/22/15 [History] Polyethylene Glycol 3350 [MiraLAX] 17 gm PO DAILY PRN 05/29/15 [History] Ondansetron [Zofran Odt] 8 mg PO Q6H PRN #10 tab.rapdis 12/22/15 [Rx] ClonazePAM [KlonoPIN] 2 mg PO DAILY 03/14/17 [History] Morphine 15 mg PO BEDTIME PRN 03/14/17 [History] Pregabalin [Lyrica] 50 mg PO BID 03/14/17 [History] DULoxetine [Cymbalta] 60 mg PO DAILY 09/25/17 [History] traMADol [Ultram] 50 - 100 mg PO Q8H PRN #15 tablet 09/25/17 [Rx] Acetaminophen/HYDROcodone [[place] 325-5 MG] 1 tab PO Q4H PRN #10 tab 09/26/19 [Rx] Potassium Chloride [Klor-Con] 40 meq PO TID #18 packet 09/27/19 [Rx] Potassium Chloride 40 meq PO TID #18 tablet.er 10/23/19 [Rx] Past Medical History HEENT History: Reports: Impaired Vision, Other (See Below) Other HEENT History: L eye surg Respiratory History: Reports: COPD Gastrointestinal History: Reports: Gastritis, GERD Other Gastrointestinal History: Pt states on her previous meeting with , he stated she might have GERD. Genitourinary History: Reports: Other (See Below). Denies: Renal Calculus Other Genitourinary History: diagnosed with UTI 03/25/15 [employer] History: Reports: Musculoskeletal History: Reports: Back Pain, Chronic, Fracture Neurological History: Reports: Migraines Psychiatric History: Reports: Addiction, Anxiety, Bipolar, Depression, Panic Attack Other Psychiatric History: hx alcohol abuse, is recovering alcoholic. Endocrine/Metabolic History: Reports: Hypothyroidism, Vitamin D Deficiency Hematologic History: Reports: Blood Transfusion(s) Dermatologic History: Reports: Other (See Below) Other Dermatologic History: Has bouts of sores on her skin, has spoken to about it. - Infectious Disease History Infectious Disease History: Reports: Chicken Pox - Past Surgical History GI Surgical History: Reports: Appendectomy, Bariatric Procedure (Gastric bypass 2008 (Dr. Edouard, [facility]) and revision 2014 (Dr. Duron, [facility])), Colonoscopy, EGD, Other (See Below) Female Surgical History: Reports: Section, Hysterectomy Neurological Surgical History: Reports: Other (See Below) Social & Family History - Family History Family Medical History: Noncontributory GI: Reports: Other (See Below) Other GI Family History: Gastric by passX2 - Caffeine Use Caffeine Use: Reports: Energy Drinks, Soda Other Caffeine Use: sugar free - Living Situation & Occupation Occupation: Disabled ED ROS GENERAL - Review of Systems Review Of Systems: See Below Constitutional: Reports: No Symptoms HEENT: Reports: No Symptoms Respiratory: Reports: No Symptoms Cardiovascular: Reports: No Symptoms Endocrine: Reports: No Symptoms GI/Abdominal: Reports: No Symptoms : Reports: No Symptoms Musculoskeletal: Reports: No Symptoms Skin: Reports: No Symptoms Neurological: Reports: No Symptoms Psychiatric: Reports: No Symptoms Hematologic/Lymphatic: Reports: No Symptoms Immunologic: Reports: No Symptoms ED EXAM, GENERAL - Physical Exam Exam: See Below Exam Limited By: No Limitations General Appearance: Alert, WD/WN, No Apparent Distress, Other (pt orthostatic with inc HR to 128 when standing) Ears: Hearing Grossly Normal Head: Atraumatic, Normocephalic Neck: Normal Inspection, Supple, Non-Tender, Full Range of Motion. No: Lymphadenopathy (R), Lymphadenopathy (L) Respiratory/Chest: No Respiratory Distress, Lungs Clear, Normal Breath Sounds, No Accessory Muscle Use, Chest Non-Tender Cardiovascular: Regular Rate, Rhythm, No Edema, No Murmur GI/Abdominal: Soft, Non-Tender, No Distention Extremities: Normal Inspection, Normal Range of Motion, Non-Tender, No Pedal Edema Neurological: Alert, Oriented, CN II-XII Intact, Normal Cognition, No Motor/Sensory Deficits Psychiatric: Normal Affect, Normal Mood Skin Exam: Warm, Dry, Intact, Normal Color, No Rash Lymphatic: No Adenopathy Course - Vital Signs Last Recorded V/S: Last Vital Signs Temp 36.7 C 10/23/19 16:54 Pulse 98 10/23/19 16:54 Resp 18 10/23/19 16:54 BP 114/77 10/23/19 16:54 Pulse Ox 99 10/23/19 16:54 Orthostatic Blood Pressure [ 107/69 Standing] Orthostatic Blood Pressure [ 114/77 Sitting] - Orders/Labs/Meds Orders: Active Orders 24 hr Category Date Time Status EKG Documentation Completion [RC] ASDIRECTED Care 10/23/19 16:53 Active Orthostatic Vital Signs [RC] ASDIRECTED Care 10/23/19 16:57 Active NS + KCl 20mEq/L [Normal Saline with 20 mEq KCl] 1,000 Med 10/23/19 17:00 Active ml IV ASDIRECTED NS + KCl 20mEq/L [Normal Saline with 20 mEq KCl] 1,000 Med 10/23/19 17:15 Active ml IV ASDIRECTED EKG 12 Lead [EK] Routine Ther 10/23/19 16:53 Ordered Medication Orders Potassium Chloride/Sodium Chloride (Normal Saline With 20 Meq Kcl) 1,000 mls @ 500 mls/hr IV ASDIRECTED LENA Last Admin: 10/23/19 19:30 Dose: 500 mls/hr Documented by: Infusion: 10/23/19 19:30 Dose: 500 mls/hr Documented by: Admin: 10/23/19 17:30 Dose: 500 mls/hr Documented by: DORENE Potassium Chloride/Sodium Chloride (Normal Saline With 20 Meq Kcl) 1,000 mls @ 500 mls/hr IV ASDIRECTED LENA Last Admin: 10/23/19 17:30 Dose: 500 mls/hr Documented by: DORENE Labs: Laboratory Tests 10/23/19 10/23/19 10/23/19 Range/Units 17:05 17:05 17:05 Potassium (3.5-5.3) mmol/L Magnesium 1.8 (1.8-2.5) mg/dL Troponin I 7.6 (4.0-60.3) pg/mL TSH, Ultra Sensitive 0.21 L (0.36-3.74) IU/mL 10/23/19 Range/Units 20:45 Potassium 2.8 L* (3.5-5.3) mmol/L Magnesium (1.8-2.5) mg/dL Troponin I (4.0-60.3) pg/mL TSH, Ultra Sensitive (0.36-3.74) IU/mL Meds: Medications Generic Name Dose Route Start Last Admin Trade Name Freq PRN Reason Stop Dose Admin Potassium Chloride/Sodium Chloride 1,000 mls @ 500 mls/hr 10/23/19 17:00 10/23/19 19:30 Normal Saline With 20 Meq Kcl IV 500 mls/hr ASDIRECTED LENA Administration Potassium Chloride/Sodium Chloride 1,000 mls @ 500 mls/hr 10/23/19 17:15 10/23/19 17:30 Normal Saline With 20 Meq Kcl IV 500 mls/hr ASDIRECTED LENA Administration Discontinued Medications Generic Name Dose Route Start Last Admin Trade Name Clay PRN Reason Stop Dose Admin Potassium Chloride 100 mls @ 100 mls/hr 10/23/19 17:00 Kcl 10 Meq In Water 100 Ml IV 10/23/19 20:59 Q1H LENA Potassium Chloride 20 meq 10/23/19 17:00 10/23/19 20:03 Klor-Con M20 PO 10/23/19 20:01 20 meq Q3H LENA Administration - Re-Assessments/Exams Free Text/Narrative Re-Assessment/Exam: 10/23/19 21:09 cause of her hypokalemia not entirely clear, likely related to hot weather and prior gastric bypass surgery, pt still has some KCl 20 meq tabs at home from her visit to ED last month, will have her finish those, additional tabs sent to pharmacy, pt to take a total of 5 days worth Departure - Departure Time of Disposition: 21:06 Disposition: Home, Self-Care 01 Condition: Good Clinical Impression: Hypokalemia, Orthostasis, Dehydration - Discharge Information *PRESCRIPTION DRUG MONITORING PROGRAM REVIEWED*: Not Applicable *COPY OF PRESCRIPTION DRUG MONITORING REPORT IN PATIENT AFSANEH: Not Applicable Prescriptions: Potassium Chloride 40 meq PO TID #18 tablet.er Instructions: Hypokalemia, Rehydration, Adult Referrals: Garry Issa MD [Primary Care Provider] - Additional Instructions: Take potassium 20 meq 2 tabs 3 times a day for [address] Issa in 4 days before the weekend, earlier if you are feeling worse. Increase fluids. Sepsis Event Note (ED) - Evaluation Sepsis Screening Result: No Definite Risk - Focused Exam Vital Signs: Vital Signs Temp Pulse Resp BP Pulse Ox 10/23/19 16:54 36.7 C 98 18 114/77 99 - My Orders Last 24 Hours: My Active Orders 10/23/19 16:53 EKG Documentation Completion [RC] ASDIRECTED EKG 12 Lead [EK] Routine 10/23/19 16:57 Orthostatic Vital Signs [RC] ASDIRECTED 10/23/19 17:00 NS + KCl 20mEq/L [Normal Saline with 20 mEq KCl] 1,000 ml IV ASDIRECTED 10/23/19 17:15 NS + KCl 20mEq/L [Normal Saline with 20 mEq KCl] 1,000 ml IV ASDIRECTED - Assessment/Plan Last 24 Hours: My Active Orders 10/23/19 16:53 EKG Documentation Completion [RC] ASDIRECTED EKG 12 Lead [EK] Routine 10/23/19 16:57 Orthostatic Vital Signs [RC] ASDIRECTED 10/23/19 17:00 NS + KCl 20mEq/L [Normal Saline with 20 mEq KCl] 1,000 ml IV ASDIRECTED 10/23/19 17:15 NS + KCl 20mEq/L [Normal Saline with 20 mEq KCl] 1,000 ml IV ASDIRECTED
[2019-10-23] MEDS ORDERED: NS + KCl 20mEq/L 1,000 ML IV SCH (17:15)
[2019-10-23] MEDS: Potassium Chloride 20 MEQ Tab.ER PO SCH ×2 (17:15→20:03)
[2019-10-23] MEDS: NS + KCl 20mEq/L 1,000 ML IV SCH ×2 (17:30→19:30)
[2019-10-23 21:24] VITALS: BP 124/75; PULSE 79
== END 2019-10-23 21:40 | disposition home or self-care (01) ==
LOC: FB.ED 16:45
DX: E87.6 Hypokalemia (principal); E86.0 Dehydration; J44.9 Chronic obstructive pulmonary disease, unspecified; K21.9 Gastro-esophageal reflux disease without esophagitis; F41.0 Panic disorder [episodic paroxysmal anxiety]; F31.9 Bipolar disorder, unspecified; E03.9 Hypothyroidism, unspecified; Z88.8 Allergy status to other drugs, medicaments and biological substances; Z88.1 Allergy status to other antibiotic agents; Z88.0 Allergy status to penicillin; Z90.49 Acquired absence of other specified parts of digestive tract; Z79.899 Other long term (current) drug therapy
CPT/HCPCS: 36415; 83735; 84132; 84443; 84484; 93005; 96360; 96361; 99285; A9270; J3480; 93010; 99283

== ENCOUNTER 2019-11-01 10:30 | Emergency (ER) | payer MEDICARE, MEDICAID, OTHER ==
[2019-11-01] MEDS ORDERED: Succinylcholine 200 MG/10 ML MDV IV ONE (10:31)
[2019-11-01] MEDS ORDERED: Rocuronium 100 MG/10 ML MDV IV ONE (10:31)
[2019-11-01] MEDS ORDERED: Sodium Chloride 0.9% 10 ML Syringe FLUSH PRN (10:38)
--- NOTE | 2019-11-01 11:04 | EDM.PDOC ---
ED HPI GENERAL MEDICAL PROBLEM - General Stated Complaint: CARDIC ARREST Time Seen by Provider: 11/01/19 10:30 Source of Information: Reports: EMS - History of Present Illness INITIAL COMMENTS - FREE TEXT/NARRATIVE: Patient presented to the ED post cardiorespiratory arrest. EMS was called at about 0930 AM because of an unresponsive 49 YO WF. When EMS arrived at the scene, patient was on asystole and was given 1 dose of epinephrine. She went from asystole to VTAC and eventually was shocked with 200 joules. Patient then regained her VS. - Related Data Allergies Allergy/AdvReac Type Severity Reaction Status Date / Time adhesive Allergy Rash Verified 09/25/17 16:10 ceftriaxone sodium Allergy Hives Verified 09/25/17 16:10 [From Rocephin] cephalexin Allergy Rash Verified 09/25/17 16:10 meperidine HCl [From Demerol] Allergy Hives Verified 09/25/17 16:10 Penicillins Allergy Rash Verified 09/25/17 16:10 vancomycin Allergy Wheezing Verified 09/25/17 16:10 Home Meds: Home Meds Albuterol [Proventil HFA] 2 puff INH ASDIRECTED PRN 03/13/14 [History] Levothyroxine 125 mcg PO DAILY 03/13/14 [History] Montelukast Sodium [Singulair] 10 mg PO DAILY 03/13/14 [History] QUEtiapine [SEROquel] 600 mg PO BEDTIME 03/13/14 [History] Zolpidem Tartrate 10 mg PO BEDTIME PRN 03/13/14 [History] Cholecalciferol (Vitamin D3) [Vitamin D3] 2,000 units PO DAILY 10/22/14 [History] Omeprazole [Prilosec] 20 mg PO BID 03/26/15 [History] QUEtiapine [SEROquel] 200 mg PO DAILY 05/22/15 [History] Polyethylene Glycol 3350 [MiraLAX] 17 gm PO DAILY PRN 05/29/15 [History] Ondansetron [Zofran Odt] 8 mg PO Q6H PRN #10 tab.rapdis 12/22/15 [Rx] ClonazePAM [KlonoPIN] 2 mg PO DAILY 03/14/17 [History] Morphine 15 mg PO BEDTIME PRN 03/14/17 [History] Pregabalin [Lyrica] 50 mg PO BID 03/14/17 [History] DULoxetine [Cymbalta] 60 mg PO DAILY 09/25/17 [History] traMADol [Ultram] 50 - 100 mg PO Q8H PRN #15 tablet 09/25/17 [Rx] Acetaminophen/HYDROcodone [Seymour 325-5 MG] 1 tab PO Q4H PRN #10 tab 09/26/19 [Rx] Potassium Chloride [Klor-Con] 40 meq PO TID #18 packet 09/27/19 [Rx] Potassium Chloride 40 meq PO TID #18 tablet.er 10/23/19 [Rx] Past Medical History HEENT History: Reports: Impaired Vision, Other (See Below) Other HEENT History: L eye surg Respiratory History: Reports: COPD Gastrointestinal History: Reports: Gastritis, GERD Other Gastrointestinal History: Pt states on her previous meeting with , he stated she might have GERD. Genitourinary History: Reports: Other (See Below). Denies: Renal Calculus Other Genitourinary History: diagnosed with UTI 03/25/15 [employer] History: Reports: Musculoskeletal History: Reports: Back Pain, Chronic, Fracture Neurological History: Reports: Migraines Psychiatric History: Reports: Addiction, Anxiety, Bipolar, Depression, Panic Attack Other Psychiatric History: hx alcohol abuse, is recovering alcoholic. Endocrine/Metabolic History: Reports: Hypothyroidism, Vitamin D Deficiency Hematologic History: Reports: Blood Transfusion(s) Dermatologic History: Reports: Other (See Below) Other Dermatologic History: Has bouts of sores on her skin, has spoken to about it. - Infectious Disease History Infectious Disease History: Reports: Chicken Pox - Past Surgical History GI Surgical History: Reports: Appendectomy, Bariatric Procedure (Gastric bypass 2008 (Dr. Edouard, [facility]) and revision 2014 (Dr. Duron, [facility])), Colonoscopy, EGD, Other (See Below) Female Surgical History: Reports: Section, Hysterectomy Neurological Surgical History: Reports: Other (See Below) Social & Family History - Family History Family Medical History: Noncontributory GI: Reports: Other (See Below) Other GI Family History: Gastric by passX2 - Caffeine Use Caffeine Use: Reports: Energy Drinks, Soda Other Caffeine Use: sugar free - Living Situation & Occupation Occupation: Disabled ED ROS GENERAL - Review of Systems Review Of Systems: See Below Constitutional: Reports: ROS unobtainable HEENT: Reports: No Symptoms Respiratory: Reports: Shortness of Breath Cardiovascular: Reports: Blood Pressure Problem Endocrine: Reports: No Symptoms GI/Abdominal: Reports: No Symptoms : Reports: No Symptoms Musculoskeletal: Reports: No Symptoms Skin: Reports: No Symptoms Psychiatric: Reports: No Symptoms Hematologic/Lymphatic: Reports: No Symptoms Immunologic: Reports: No Symptoms ED EXAM, CPR - Physical Exam Exam: See Below Limited By: Respiratory Distress, Altered Mental Status General Appearance: Other (unresponsive) Eye Exam: Bilateral Eye: PERRL Ears: Normal External Exam Nose: Normal Inspection Throat/Mouth: Normal Inspection, Normal Lips, Normal Teeth Head: Atraumatic, Normocephalic Respiratory Chest: Respiratory Distress, Decreased Breath Sounds Cardiovascular: Tachycardia GI/Abdominal Exam: Normal Bowel Sounds Extremities: Normal Inspection, Normal Range of Motion, Non-Tender Neurological: Unresponsive Skin Exam: Cool Course - Vital Signs Text/Narrative:: see labs Patient was intubated as soon as she arrived in the ED.( 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 Air Transport was also initiated and fluids was infused. She was vitally stable throughout her stay in the ED until [facility] arrived. - Orders/Labs/Meds Labs: Laboratory Tests 11/01/19 11/01/19 11/01/19 Range/Units 10:45 10:45 10:45 WBC 13.2 H (4.5-12.0) X10-3/uL RBC 3.76 (3.23-5.20) x10(6)uL Hgb 10.3 L (11.5-15.5) g/dL Hct 32.5 (30.0-51.3) % MCV 86.5 (80-96) fL MCH 27.3 L (27.7-33.6) pg MCHC 31.5 L (32.2-35.4) g/dL RDW 23.2 H (11.5-15.5) % Plt Count 347 (125-369) X10(3)uL MPV 8.7 (7.4-10.4) fL Neut % (Auto) 73.2 (46-82) % Lymph % (Auto) 19.1 (13-37) % [place] % (Auto) 6.9 (4-12) % Eos % (Auto) 0 L (1.0-5.0) % Baso % (Auto) 1 (0-2) % Neut # (Auto) 9.7 H (1.6-8.3) # Lymph # (Auto) 2.5 (0.6-5.0) # [place] # (Auto) 0.9 (0.0-1.3) # Eos # (Auto) 0.0 (0.0-0.8) # Baso # (Auto) 0.1 (0.0-0.2) # PT 10.3 (9.0-11.1) sec INR 0.95 L (1.00-1.24) APTT 21.8 L (24.4-33.2) SECONDS POC VBG pH POC VBG pCO2 POC VBG HCO3 VBG Base Excess O2 Delivery Device Oxygen Flow Rate Sodium 128 L (135-145) mmol/L Potassium 8.5 H* D (3.5-5.3) mmol/L Chloride 101 D (100-110) mmol/L Carbon Dioxide 13 L (21-32) mmol/L BUN 21 H (7-18) mg/dL Creatinine 2.0 H* (0.55-1.02) mg/dL Est Cr Clr Drug Dosing TNP Estimated GFR (MDRD) 27 L (>60) BUN/Creatinine Ratio 10.5 (9-20) Glucose 216 H D (80-116) mg/dL Lactic Acid (0.4-2.0) mmol/L Calcium 9.7 (8.6-10.2) mg/dL Total Bilirubin 0.7 (0.1-1.3) mg/dL AST 34 H D (5-25) IU/L ALT 30 D (12-36) U/L Alkaline Phosphatase 136 H (56-112) IU/L Troponin I (4.0-60.3) pg/mL NT-Pro-B Natriuret Pep (<=125) pg/mL Total Protein 7.4 (6.0-8.0) g/dL Albumin 3.2 L (3.5-5.2) g/dL Globulin 4.2 g/dL Albumin/Globulin Ratio 0.8 TSH, Ultra Sensitive (0.36-3.74) IU/mL Urine Color (YELLOW) Urine Appearance (CLEAR) Urine pH (5.0-6.5) Ur Specific Kel[place] (1.010-1.025) Urine Protein (NEGATIVE) mg/dL Urine Glucose (UA) (NORMAL) mg/dL Urine Ketones (NEGATIVE) mg/dL Urine Occult Blood (NEGATIVE) Urine Nitrite (NEGATIVE) Urine Bilirubin (NEGATIVE) Urine Urobilinogen (NEGATIVE) mg/dL Ur Leukocyte Esterase (NEGATIVE) Urine RBC (0-5) Urine WBC (0-5) Ur Squamous Epith Cells (NS,R,O) Urine Bacteria (NS) Urine Opiates Screen (NEGATIVE) Ur Oxycodone Screen (NEGATIVE) Ur Propoxyphene Screen (NEGATIVE) Ur Barbituates Screen (NEGATIVE) Ur Tricyclics Screen (NEGATIVE) Ur Phencyclidine Scrn (NEGATIVE) Ur Amphetamine Screen (NEGATIVE) Urine MDMA Screen (NEGATIVE) U Benzodiazepines Scrn (NEGATIVE) U Cocaine Metab Screen (NEGATIVE) U Marijuana (THC) Screen (NEGATIVE) SARS Virus RNA (PCR) (NEGATIVE) 11/01/19 11/01/19 11/01/19 Range/Units 10:45 10:45 10:45 WBC (4.5-12.0) X10-3/uL RBC (3.23-5.20) x10(6)uL Hgb (11.5-15.5) g/dL Hct (30.0-51.3) % MCV (80-96) fL MCH (27.7-33.6) pg MCHC (32.2-35.4) g/dL RDW (11.5-15.5) % Plt Count (125-369) X10(3)uL MPV (7.4-10.4) fL Neut % (Auto) (46-82) % Lymph % (Auto) (13-37) % [place] % (Auto) (4-12) % Eos % (Auto) (1.0-5.0) % Baso % (Auto) (0-2) % Neut # (Auto) (1.6-8.3) # Lymph # (Auto) (0.6-5.0) # [place] # (Auto) (0.0-1.3) # Eos # (Auto) (0.0-0.8) # Baso # (Auto) (0.0-0.2) # PT (9.0-11.1) sec INR (1.00-1.24) APTT (24.4-33.2) SECONDS POC VBG pH POC VBG pCO2 POC VBG HCO3 VBG Base Excess O2 Delivery Device Oxygen Flow Rate Sodium (135-145) mmol/L Potassium (3.5-5.3) mmol/L Chloride (100-110) mmol/L Carbon Dioxide (21-32) mmol/L BUN (7-18) mg/dL Creatinine (0.55-1.02) mg/dL Est Cr Clr Drug Dosing Estimated GFR (MDRD) (>60) BUN/Creatinine Ratio (9-20) Glucose (80-116) mg/dL Lactic Acid 4.3 H* (0.4-2.0) mmol/L Calcium (8.6-10.2) mg/dL Total Bilirubin (0.1-1.3) mg/dL AST (5-25) IU/L ALT (12-36) U/L Alkaline Phosphatase (56-112) IU/L Troponin I 17.2 (4.0-60.3) pg/mL NT-Pro-B Natriuret Pep 102 (<=125) pg/mL Total Protein (6.0-8.0) g/dL Albumin (3.5-5.2) g/dL Globulin g/dL Albumin/Globulin Ratio TSH, Ultra Sensitive 0.39 (0.36-3.74) IU/mL Urine Color (YELLOW) Urine Appearance (CLEAR) Urine pH (5.0-6.5) Ur Specific [place] (1.010-1.025) Urine Protein (NEGATIVE) mg/dL Urine Glucose (UA) (NORMAL) mg/dL Urine Ketones (NEGATIVE) mg/dL Urine Occult Blood (NEGATIVE) Urine Nitrite (NEGATIVE) Urine Bilirubin (NEGATIVE) Urine Urobilinogen (NEGATIVE) mg/dL Ur Leukocyte Esterase (NEGATIVE) Urine RBC (0-5) Urine WBC (0-5) Ur Squamous Epith Cells (NS,R,O) Urine Bacteria (NS) Urine Opiates Screen (NEGATIVE) Ur Oxycodone Screen (NEGATIVE) Ur Propoxyphene Screen (NEGATIVE) Ur Barbituates Screen (NEGATIVE) Ur Tricyclics Screen (NEGATIVE) Ur Phencyclidine Scrn (NEGATIVE) Ur Amphetamine Screen (NEGATIVE) Urine MDMA Screen (NEGATIVE) U Benzodiazepines Scrn (NEGATIVE) U Cocaine Metab Screen (NEGATIVE) U Marijuana (THC) Screen (NEGATIVE) SARS Virus RNA (PCR) (NEGATIVE) 11/01/19 11/01/19 11/01/19 Range/Units 10:45 10:45 10:57 WBC (4.5-12.0) X10-3/uL RBC (3.23-5.20) x10(6)uL Hgb (11.5-15.5) g/dL Hct (30.0-51.3) % MCV (80-96) fL MCH (27.7-33.6) pg MCHC (32.2-35.4) g/dL RDW (11.5-15.5) % Plt Count (125-369) X10(3)uL MPV (7.4-10.4) fL Neut % (Auto) (46-82) % Lymph % (Auto) (13-37) % [place] % (Auto) (4-12) % Eos % (Auto) (1.0-5.0) % Baso % (Auto) (0-2) % Neut # (Auto) (1.6-8.3) # Lymph # (Auto) (0.6-5.0) # [place] # (Auto) (0.0-1.3) # Eos # (Auto) (0.0-0.8) # Baso # (Auto) (0.0-0.2) # PT (9.0-11.1) sec INR (1.00-1.24) APTT (24.4-33.2) SECONDS POC VBG pH Cancelled 7.19 L* POC VBG pCO2 Cancelled 33 L POC VBG HCO3 Cancelled 13 L VBG Base Excess Cancelled -16 L O2 Delivery Device Cancelled Vent mask Oxygen Flow Rate Cancelled Sodium (135-145) mmol/L Potassium (3.5-5.3) mmol/L Chloride (100-110) mmol/L Carbon Dioxide (21-32) mmol/L BUN (7-18) mg/dL Creatinine (0.55-1.02) mg/dL Est Cr Clr Drug Dosing Estimated GFR (MDRD) (>60) BUN/Creatinine Ratio (9-20) Glucose (80-116) mg/dL Lactic Acid (0.4-2.0) mmol/L Calcium (8.6-10.2) mg/dL Total Bilirubin (0.1-1.3) mg/dL AST (5-25) IU/L ALT (12-36) U/L Alkaline Phosphatase (56-112) IU/L Troponin I (4.0-60.3) pg/mL NT-Pro-B Natriuret Pep (<=125) pg/mL Total Protein (6.0-8.0) g/dL Albumin (3.5-5.2) g/dL Globulin g/dL Albumin/Globulin Ratio TSH, Ultra Sensitive (0.36-3.74) IU/mL Urine Color (YELLOW) Urine Appearance (CLEAR) Urine pH (5.0-6.5) Ur Specific [place] (1.010-1.025) Urine Protein (NEGATIVE) mg/dL Urine Glucose (UA) (NORMAL) mg/dL Urine Ketones (NEGATIVE) mg/dL Urine Occult Blood (NEGATIVE) Urine Nitrite (NEGATIVE) Urine Bilirubin (NEGATIVE) Urine Urobilinogen (NEGATIVE) mg/dL Ur Leukocyte Esterase (NEGATIVE) Urine RBC (0-5) Urine WBC (0-5) Ur Squamous Epith Cells (NS,R,O) Urine Bacteria (NS) Urine Opiates Screen (NEGATIVE) Ur Oxycodone Screen (NEGATIVE) Ur Propoxyphene Screen (NEGATIVE) Ur Barbituates Screen (NEGATIVE) Ur Tricyclics Screen (NEGATIVE) Ur Phencyclidine Scrn (NEGATIVE) Ur Amphetamine Screen (NEGATIVE) Urine MDMA Screen (NEGATIVE) U Benzodiazepines Scrn (NEGATIVE) U Cocaine Metab Screen (NEGATIVE) U Marijuana (THC) Screen (NEGATIVE) SARS Virus RNA (PCR) Negative (NEGATIVE) 11/01/19 11/01/19 Range/Units 11:00 11:00 WBC (4.5-12.0) X10-3/uL RBC (3.23-5.20) x10(6)uL Hgb (11.5-15.5) g/dL Hct (30.0-51.3) % MCV (80-96) fL MCH (27.7-33.6) pg MCHC (32.2-35.4) g/dL RDW (11.5-15.5) % Plt Count (125-369) X10(3)uL MPV (7.4-10.4) fL Neut % (Auto) (46-82) % Lymph % (Auto) (13-37) % [place] % (Auto) (4-12) % Eos % (Auto) (1.0-5.0) % Baso % (Auto) (0-2) % Neut # (Auto) (1.6-8.3) # Lymph # (Auto) (0.6-5.0) # [place] # (Auto) (0.0-1.3) # Eos # (Auto) (0.0-0.8) # Baso # (Auto) (0.0-0.2) # PT (9.0-11.1) sec INR (1.00-1.24) APTT (24.4-33.2) SECONDS POC VBG pH POC VBG pCO2 POC VBG HCO3 VBG Base Excess O2 Delivery Device Oxygen Flow Rate Sodium (135-145) mmol/L Potassium (3.5-5.3) mmol/L Chloride (100-110) mmol/L Carbon Dioxide (21-32) mmol/L BUN (7-18) mg/dL Creatinine (0.55-1.02) mg/dL Est Cr Clr Drug Dosing Estimated GFR (MDRD) (>60) BUN/Creatinine Ratio (9-20) Glucose (80-116) mg/dL Lactic Acid (0.4-2.0) mmol/L Calcium (8.6-10.2) mg/dL Total Bilirubin (0.1-1.3) mg/dL AST (5-25) IU/L ALT (12-36) U/L Alkaline Phosphatase (56-112) IU/L Troponin I (4.0-60.3) pg/mL NT-Pro-B Natriuret Pep (<=125) pg/mL Total Protein (6.0-8.0) g/dL Albumin (3.5-5.2) g/dL Globulin g/dL Albumin/Globulin Ratio TSH, Ultra Sensitive (0.36-3.74) IU/mL Urine Color Yellow (YELLOW) Urine Appearance Cloudy (CLEAR) Urine pH 5.0 (5.0-6.5) Ur Specific [place] 1.020 (1.010-1.025) Urine Protein 30 H (NEGATIVE) mg/dL Urine Glucose (UA) Normal (NORMAL) mg/dL Urine Ketones 15 H (NEGATIVE) mg/dL Urine Occult Blood Moderate H (NEGATIVE) Urine Nitrite Positive H (NEGATIVE) Urine Bilirubin Small H (NEGATIVE) Urine Urobilinogen 1 H (NEGATIVE) mg/dL Ur Leukocyte Esterase Negative (NEGATIVE) Urine RBC 0-5 (0-5) Urine WBC >100 H (0-5) Ur Squamous Epith Cells Occasional (NS,R,O) Urine Bacteria Many H (NS) Urine Opiates Screen Negative (NEGATIVE) Ur Oxycodone Screen Negative (NEGATIVE) Ur Propoxyphene Screen Negative (NEGATIVE) Ur Barbituates Screen Negative (NEGATIVE) Ur Tricyclics Screen Positive H (NEGATIVE) Ur Phencyclidine Scrn Negative (NEGATIVE) Ur Amphetamine Screen Negative (NEGATIVE) Urine MDMA Screen Negative (NEGATIVE) U Benzodiazepines Scrn Positive H (NEGATIVE) U Cocaine Metab Screen Negative (NEGATIVE) U Marijuana (THC) Screen Positive H (NEGATIVE) SARS Virus RNA (PCR) (NEGATIVE) Meds: Medications Discontinued Medications Generic Name Dose Route Start Last Admin Trade Name Freq PRN Reason Stop Dose Admin Rocuronium Kelliher 30 mg 11/01/19 10:31 Zemuron IV 11/01/19 10:32 .STK-MED ONE Sodium Chloride 10 ml 11/01/19 10:38 Saline Flush FLUSH ASDIRECTED PRN Keep Vein Open Succinylcholine Chloride 100 mg 11/01/19 10:31 Quelicin IV 11/01/19 10:32 .STK-MED ONE Departure - Departure Time of Disposition: 11:15 Disposition: DC/Tfer to Acute Hospital 02 Condition: Critical Clinical Impression: Cardiorespiratory arrest, CLAUDETTE (acute kidney injury), Hyperkalemia - Discharge Information Referrals: PCP,None [Ordering Only Provider] - Forms: ED Department Discharge
--- NOTE | 2019-11-01 11:25 | CR ---
INDICATION: Found unresponsive, post intubation. CHEST ONE VIEW: A portable supine view of the chest was obtained 11/01/19 and compared with 11/06/14 and 12/03/10. Endotracheal tube is in good position as visualized with its tip 34 mm cranial to the oneyda. The heart is normal in size and shape. Active infiltrate or effusion was not identified. IMPRESSION: Satisfactory position of endotracheal tube. MTDD
--- NOTE | 2019-11-01 11:53 | PCM.SN.2 ---
- Free Text/Narrative Note: ANESTHESIA CRITICAL SERVICE Date: 11/01/2019 Time: 1030 to 1115 Dx: Cardiac Arrest in the field with ROSC and agonal spontaneous respirations. Rx: Airway management with protection. Procedure: Intubation per physician request. This patient has very labored respirations, tachycardia [110], pupils fixed and non-reactive to light and liable blood pressure. After 1 minutes of pre- oxygenation 100% non-rebreather, I gave her 100 mg's of Anectine followed by oral intubation using a #3 Roberts-scope X 1 attempt. I placed a #7.0 ETT with bilateral equal breath sounds and positive EtCO2 continuous return. The tube was secured at 21 cm to her lower lip and post-CXR showed good placement. I continued to manually ventilate with 100% O2 per an Ambu-Bag keeping her EtCO2 around 28. I did give her 30 mg's of Zemuron IV for ventilation control and planned helicopter flight to [place]. It should be noted that her pupils are smaller bilaterally with a slow reaction to light now. Garry Harper CRNA, A
[2019-11-03 07:57] LABS: BASE EXCESS VENOUS,POC -16 mmol/L (-2-3); HCO3 VENOUS,POC 13 mmol/L (21-29); PCO2 VENOUS,POC 33 mmHg (41-51); PH VENOUS,POC 7.19 pH Units (7.32-7.43)
== END 2019-11-01 11:23 ==
LOC: FB.ED 10:30
DX: I46.9 Cardiac arrest, cause unspecified (principal); E87.5 Hyperkalemia; N17.9 Acute kidney failure, unspecified; J44.9 Chronic obstructive pulmonary disease, unspecified; K21.9 Gastro-esophageal reflux disease without esophagitis; F41.0 Panic disorder [episodic paroxysmal anxiety]; F31.9 Bipolar disorder, unspecified; Z20.828 Contact with and (suspected) exposure to other viral communicable diseases; Z88.8 Allergy status to other drugs, medicaments and biological substances; Z88.0 Allergy status to penicillin; Z88.1 Allergy status to other antibiotic agents; Z79.899 Other long term (current) drug therapy; R06.02 Shortness of breath
CPT/HCPCS: 31500; 36415; 51702; 71045; 80053; 80305; 81001; 83605; 83880; 84443; 84484; 85025; 85610; 85730; 93005; 99285; J0330; U0002